=== PATIENT | male | born 1965 ===

== ENCOUNTER 2017-05-10 09:31 | Day surgery (SDC) | payer MEDICARE ==
--- NOTE | 2017-05-10 08:21 | HP ---
DATE OF SURGERY: 05/10/2017 HISTORY OF PRESENT ILLNESS: The patient is a 52 year-old with right groin pain and swelling the past couple of months. No prior surgery. Worse with moving around. It was felt he had right inguinal hernia on exam. There was question whether there was a faint scar in there but the patient did not remember any prior hernia repair there. PAST MEDICAL HISTORY: Hypertension, history of seizures in the past, degenerative disc disease, Linch's disease, hypertension. PAST SURGICAL HISTORY: Coronary stents and hardware in his arm. MEDICATIONS: Includes tramadol, Zanaflex, Zyprexa, fluconazole spray, lisinopril. ALLERGIES: NKDA. FAMILY HISTORY: Heart disease. SOCIAL HISTORY: No smoking. REVIEW OF SYSTEMS: Twelve systems reviewed per admission assessment. No chest pain or palpitations other systems negative or noncontributory as above and per preadmission questionnaire. Including seizure disorder, hypertension, heart disease. PHYSICAL EXAMINATION: GENERAL: No acute distress. HEENT: Sclerae nonicteric. NECK: No JVD. CHEST: Equal excursion, nonlabored breathing. CVS: Regular rate and rhythm. ABDOMEN: Soft. No peritoneal signs. EXTREMITIES: No edema. NEURO: Alert, moving extremities symmetrically. No gross motor deficits noted. IMPRESSION: Moderately large right inguinal hernia open repair with mesh as an outpatient. I feel the patient would benefit from repair with mesh. He was discussed the options given the size of the defect I feel less chance of recurrence with open repair. General risk of bleeding or infection, risk of hematoma or seroma formation, risk of ingrown hair or suture reaction, risk if the mesh became infected likely would need to be removed, general risk of aches, pains, burning, numbness lower abdomen, groin, thigh or scrotal area with risk of sensory nerve irritation, scar formation or injury possible assistant dean and up to 10 to 12% possible high risk intermittent ache or twinge, general risk of anesthesia, deep venous thrombosis, pulmonary embolism, pneumonia although risk of hernia recurrence, risk of cardiopulmonary event given his comorbidities but not limited to. He understands and agrees to the planned procedure, will proceed with open repair right inguinal hernia with mesh as an outpatient.
[~2017-05-10 09:31] MED LIST: Lactated Ringers 1,000 ML IV ONE; Sensorcaine 0.25% 10 ML ONE
[2017-05-10] MEDS ORDERED: TORAdol 30 mg Injection IJ ONE (09:32)
[2017-05-10] MEDS ORDERED: Versed 2 MG/2 ML Injection IV ONE (09:32)
[2017-05-10] MEDS ORDERED: Zofran 4 MG/2 ML VIAL IV ONE (09:32)
[2017-05-10] MEDS ORDERED: Zemuron 100 MG/10 ML IJ ONE (09:32)
[2017-05-10] MEDS ORDERED: BRIDION 200MG/2ML IV ONE (09:32)
[2017-05-10] MEDS ORDERED: DIPRIVAN 200 MG/20 ML IV ONE (09:32)
[2017-05-10] MEDS ORDERED: DILAUDID 2 MG INJECTION IV ONE (09:32)
[2017-05-10] MEDS ORDERED: SUBLIMAZE 250 MCG/5 ML IJ ONE (09:32)
[2017-05-10] MEDS ORDERED: Lactated Ringers 1,000 ML IV ONE (10:05)
[2017-05-10] MEDS ORDERED: CEFAZOLIN 2 GM-D5W BAG** 2 GM/50 ML ML IV ONE (10:05)
[2017-05-10] MEDS ORDERED: CEFAZOLIN 2 GM-D5W BAG** 2 GM/50 ML ML IV SCH (10:30)
[2017-05-10] MEDS ORDERED: Lactated Ringers 1,000 ML IV SCH (10:30)
[2017-05-10] MEDS ORDERED: Zofran 4 MG/2 ML VIAL IV STA (16:18)
[2017-05-10] MEDS ORDERED: Zofran 4 MG/2 ML VIAL ONE (16:44)
[2017-05-10 17:13] VITALS: BP 136/88; PULSE 85; O2SAT 96
--- NOTE | 2017-05-11 10:20 | OP ---
SURGERY DATE/TIME: 05/10/2017 9565 PREOPERATIVE DIAGNOSIS: Right inguinal hernia. POSTOPERATIVE DIAGNOSIS: Moderately large right inguinal hernia with very little inguinal floor. PROCEDURE: Recurrent right inguinal repair with mesh. SURGEON: Dr. Helio Vargas. ANESTHESIA: General. ESTIMATED BLOOD LOSS: Minimal. INDICATIONS: As noted above. Risks and benefits explained in detail and not limited to and consent was obtained. DESCRIPTION OF PROCEDURE AND FINDINGS: The site was confirmed with the patient in the preoperative holding area. The patient is taken to the operating room. General anesthesia induced. Right groin prepped and draped in usual sterile fashion. After official time out and no disagreement with planned procedure, a transverse incision made in the right inguinal area. It should be noted he had a prior inguinal scar that he had hit on a fence. Dissecting down in this general area of inguinal hernia repair, dissecting down through this old scar down through Angie fascia down to external oblique split in the direction of its fibers. It should be noted he had extensive scarring up against the inner aspect of the internal oblique consistent with prior inguinal hernia repair, prior inguinal surgery whether or not hernia repair or not. Given this extensive scar formation and basically this is recurrent right inguinal hernia. Cord gently mobilized up off the pubic tubercle with Romeo drain. Cremasteric fibers carefully protecting ilioinguinal nerve and cord. There did not appear to be any large direct component however there did not appear to be any large indirect component or indirect sac. However there was extensive diffuse weakness of the inguinal floor. Very large portion of preperitoneal fat pushing up through this area. This was repaired imbricating it down with interrupted 0 PDS in a tension-free manner up to a more normal sized internal ring. I felt he would benefit from mesh repair. A 2 x 4 piece of mesh cut to appropriate dimensions and secured to aponeurosis overlying the pubic tubercle with 0 Prolene run along the Mikael's ligament shelving portion of inguinal ligament which was quite weak. He had a quite weak shelving portion inguinal ligament of what integrity the ligament has the mesh was transfixed to. All shelving portions at the level of inguinal ligament what little ligament he had out laterally past internal ring with 0 Prolene. 0 Prolene used to transfix to rectus fascia medially as well as the medial aspect of the aponeurosis internal oblique. The reminder of the internal oblique anchored with mesh with 0 Vicryl in nice flat tension-free manner. The visible branches of the hypogastric nerve was carefully protected. Tails of the mesh tacked together laterally with 0 Prolene. The new internal ring was felt to be not to tight. Copious amount of irrigation irrigating until clear. Once this was accomplished good hemostasis noted. External oblique closed with 0 Vicryl. Angie closed with 3-0 Vicryl. Subcu closed with 3-0 Vicryl. Skin closed with 4-0 Vicryl. Steri-Strips and sterile dressing applied. 0.25% Marcaine local had been injected along the skin incision fascial defect. The patient tolerated the procedure well. There were no immediate complications. Findings discussed with the family out in the waiting area. There is moderate risk of recurrence given his extensive diffuse weak right inguinal area.
== END 2017-05-10 17:29 | disposition home or self-care (01) ==
LOC: SDC 09:31
PROVIDERS: ATTEND Surgery
PROC: 0YU50JZ Supplement Right Inguinal Region with Synthetic Substitute, Open Approach (ICD-10-PCS; principal; 2017-05-10)
DX: K40.90 Unilateral inguinal hernia, without obstruction or gangrene, not specified as recurrent (principal); I10 Essential (primary) hypertension; G10 Huntington's disease; G40.909 Epilepsy, unspecified, not intractable, without status epilepticus; Z79.899 Other long term (current) drug therapy
CPT/HCPCS: 00830; C1781; J0690; J1170; J1885; J2250; J2405; J2704; J3010